=== PATIENT | male | born 1975 | race Caucasian/White ===

== ENCOUNTER → 2019-10-04 15:19 | Outpatient (BNVA) | payer SELFPAY | PROVIDERS: Family Provider Nurse Practitioner Family; PCP Nurse Practitioner Family; Visit Provider Nurse Practitioner Family | DX: J02.9 Acute pharyngitis, unspecified (principal); Z68.25 Body mass index [BMI] 25.0-25.9, adult; F17.210 Nicotine dependence, cigarettes, uncomplicated; Z71.89 Other specified counseling | CPT/HCPCS: 87071; 87880 ==